=== PATIENT | female | born 1995 | race Asian ===

== ENCOUNTER 2018-08-13 16:34 | Emergency (ER) | payer BC, OTHER ==
[~2018-08-13] VITALS: Ht 157.5 cm; Wt 48.6 kg
[2018-08-13 16:37] VITALS: BP 130/77
[2018-08-13] MEDS ORDERED: RANI150T7 PO (16:42)
== END 2018-08-13 18:42 | disposition home or self-care (01) ==
LOC: EMS 16:34
DX: J20.9 Acute bronchitis, unspecified (principal); R11.10 Vomiting, unspecified